=== PATIENT | female | born 1960 | race Caucasian/White ===

== ENCOUNTER → 2021-05-27 | Outpatient (CLI) | payer BC | LOC: RAD 05-20 09:30 | DX: M43.17 Spondylolisthesis, lumbosacral region (principal); M48.061 Spinal stenosis, lumbar region without neurogenic claudication; M48.07 Spinal stenosis, lumbosacral region ==

== ENCOUNTER → 2022-04-21 | Outpatient (CLI) | payer OTHER | LOC: RAD 10:38 | DX: M43.17 Spondylolisthesis, lumbosacral region (principal); M51.36 Other intervertebral disc degeneration, lumbar region; M47.816 Spondylosis without myelopathy or radiculopathy, lumbar region ==

== ENCOUNTER → 2023-11-29 | Outpatient (CLI) | payer MEDICARE | LOC: RAD 14:38 | DX: M17.0 Bilateral primary osteoarthritis of knee (principal); S83.001A Unspecified subluxation of right patella, initial encounter; M94.262 Chondromalacia, left knee; M94.261 Chondromalacia, right knee; S83.241A Other tear of medial meniscus, current injury, right knee, initial encounter; X58.XXXA Exposure to other specified factors, initial encounter ==